=== PATIENT | male | born 1980 | race Caucasian/White ===

== ENCOUNTER 2016-08-25 10:18 | Emergency (ER) | payer SELFPAY ==
[2016-08-25] MEDS ORDERED: Tetracaine HCl/PF 0.5% 4 ML Bottle EYERT ONE (10:24)
[2016-08-25 10:40] VITALS: BP 143/80
--- NOTE | 2016-08-25 11:07 | EDM.PDOC ---
ED HPI GENERAL MEDICAL PROBLEM - General Chief Complaint: Eye Problems Stated Complaint: FOREIGN BODY IN OD, FELL OFF A LADDER Time Seen by Provider: 08/25/16 10:29 Source of Information: Reports: Patient History Limitations: Reports: No Limitations - History of Present Illness INITIAL COMMENTS - FREE TEXT/NARRATIVE: This patient was working on a ladder on a house when something flew out either a better bird and some debris flew up in his face. He fell off a ladder although he didn't hurt himself. He feels surgical foreign body in his right eye and it is underneath the upper eyelid the outer aspect. He denies any visual changes. This happened within the past 2 hours. - Related Data Allergies Allergy/AdvReac Type Severity Reaction Status Date / Time No Known Allergies Allergy Verified 04/14/13 06:13 Home Meds: Home Meds NK [No Known Home Meds] 03/10/13 [History] Past Medical History - Past Health History Medical/Surgical History: Denies Medical/Surgical History Social & Family History - Tobacco Use Years of Tobacco use: 5 Used Tobacco, but Quit: No Second Hand Smoke Exposure: Yes - Alcohol Use Days Per Week of Alcohol Use: 2 Number of Drinks Per Day: 10 Total Drinks Per Week: 20 - Recreational Drug Use Recreational Drug Use: No Drug Use in Last 12 Months: No Recreational Drug Type: Reports: Cocaine, Marijuana/Hashish Recreational Drug Use Frequency: Not Used In Over 1 Year ED ROS GENERAL - Review of Systems Review Of Systems: ROS reveals no pertinent complaints other than HPI. ED EXAM GENERAL W FULL EYE - Physical Exam Exam: See Below Exam Limited By: No Limitations General Appearance: Alert, WD/WN, Mild Distress Eye Exam: Right Eye: Conjunctival Injection, Foreign Body (There is a bright metallic foreign body at the lower margin of the cornea at the 6 o'clock position. It was visualized under the slit lamp and previously under a forcing staining. There were no other foreign body seen. The upper lid tarsal plate was everted and examined carefully there is no foreign body.), Bilateral Eye: EOMI Course - Vital Signs Last Recorded V/S: Last Vital Signs Temp 36.3 C 08/25/16 10:32 Pulse 67 08/25/16 10:32 Resp 16 08/25/16 10:32 BP 143/80 H 08/25/16 10:32 Pulse Ox 98 08/25/16 10:32 - Orders/Labs/Meds Meds: Medications Discontinued Medications Generic Name Dose Route Start Last Admin Trade Name Sarita PRN Reason Stop Dose Admin Tetracaine HCl 1 ml 08/25/16 10:24 Tetracaine 0.5% Steri-Unit Mora EYERT 08/25/16 10:25 ASDIRECTED ONE - Re-Assessments/Exams Free Text/Narrative Re-Assessment/Exam: 08/25/16 11:16 The eye was examined and the foreign body was seen however under slit-lamp its of bright metallic foreign body approximately 0.25 mm in diameter it looks like it may be embedded in the cornea. We don't have a magnet available. I spoke with Dr. Springer the painter drum at the [facility] and he can see him at 11 :30 this morning Departure - Departure Time of Disposition: 11:05 Disposition: Home, Self-Care 01 Condition: fair Clinical Impression: Corneal foreign body - Discharge Information Instructions: Eye Foreign Body, [id number] Referrals: Anthony Walker Sr, MD [Primary Care Provider] - Forms: ED Department Discharge Additional Instructions: See Dr Springer at the [facility] at 11:30. His cell phone is [phone] for any problems
== END 2016-08-25 11:19 | disposition home or self-care (01) ==
LOC: JP.ED 10:18
DX: T15.01XA Foreign body in cornea, right eye, initial encounter (principal); W11.XXXA Fall on and from ladder, initial encounter
CPT/HCPCS: 99283; A9270

== ENCOUNTER 2019-09-18 18:31 | Emergency (ER) | payer SELFPAY ==
[2019-09-18] MEDS ORDERED: Tetracaine HCl/PF 0.5% 4 ML Bottle EYELF ONE (18:34)
[2019-09-18 18:43] VITALS: BP 137/86; PULSE 72
--- NOTE | 2019-09-18 19:02 | EDM.PDOC ---
ED HPI GENERAL MEDICAL PROBLEM - General Chief Complaint: Eye Problems Stated Complaint: SPLINTER IN LEFT EYE Time Seen by Provider: 09/18/19 19:00 Source of Information: Reports: Patient History Limitations: Reports: No Limitations - History of Present Illness INITIAL COMMENTS - FREE TEXT/NARRATIVE: Pankaj is a 38 year old male, presents to the ED with left eye irritation and re dness after getting wood shaving in his eye this morning while using a chain saw. Patient was not using protective eye wear. DT up to date. Patient denies any visual changes or other complaints. HE has tried to wash out eye, light makes eye more sensitive. Nothing makes it better. Onset: Today Left Eye Pain Score (Numeric/FACES): 5 - Related Data Allergies Allergy/AdvReac Type Severity Reaction Status Date / Time No Known Allergies Allergy Verified 09/18/19 18:52 Home Meds: Home Meds NK [No Known Home Meds] 03/10/13 [History] Past Medical History - Past Health History Medical/Surgical History: Denies Medical/Surgical History Social & Family History - Tobacco Use Smoking Status *Q: Never Smoker - Caffeine Use Caffeine Use: Reports: Coffee, Energy Drinks - Recreational Drug Use Recreational Drug Use: No ED ROS GENERAL - Review of Systems Review Of Systems: Comprehensive ROS is negative, except as noted in HPI. ED EXAM GENERAL W FULL EYE - Physical Exam Exam: See Below Exam Limited By: No Limitations General Appearance: Alert, WD/WN, No Apparent Distress Eye Exam: Left Eye: Conjunctival Injection, Corneal Abrasion (1 o clock), Bilateral Eye: EOMI, PERRL Eyelids: Bilateral: Normal Appearance Conjunctiva & Sclera: Left: Injected, Scleral Icterus Extraocular Movements: Bilateral: Intact Pupils: Normal Accommodation Comments: eye irrigated with saline, ? FB left upper lid, in out canthus, irrigated with saline after eye anesthetized, no FB seen after this Nose: Normal Inspection Throat/Mouth: Normal Inspection Head: Atraumatic Neck: Normal Inspection Respiratory/Chest: No Respiratory Distress Cardiovascular: Regular Rate, Rhythm Back Exam: Normal Inspection Extremities: Normal Inspection Neurological: Alert, Oriented Psychiatric: Normal Affect, Normal Mood Lymphatic: No Adenopathy ED EYE w/ Add Procedure - Eye Procedure Alcaine Drops Administered: Yes Eye FB Removal: Other (Removed with NS) Progress: Fluorescein stain reveals 1 o clock corneal abrasion Course - Vital Signs Last Recorded V/S: Last Vital Signs Temp 36.4 C 09/18/19 18:51 Pulse 72 09/18/19 18:51 Resp 16 09/18/19 18:51 BP 137/86 09/18/19 18:51 Pulse Ox 98 09/18/19 18:51 Corneal abrasion left with removal of FB. DT up to date. Start antibiotic eye ointment as prescribed. Return with any worsening symptoms or new concerns. Ibuprofen/Tylenol as needed for pain per bottle instructions. Reasons to return discussed, patient agreeable and discharged in stable condition - Orders/Labs/Meds Meds: Medications Discontinued Medications Generic Name Dose Route Start Last Admin Trade Name Freq PRN Reason Stop Dose Admin Tetracaine HCl 1 ml 09/18/19 18:34 09/18/19 18:55 Tetracaine 0.5% Steri-Unit Mora EYELF 09/18/19 18:35 3 drop ASDIRECTED ONE Administration Departure - Departure Time of Disposition: 19:30 Disposition: Home, Self-Care 01 Condition: Good Clinical Impression: Corneal abrasion Qualifiers: Encounter type: initial encounter Laterality: left Qualified Code(s): S05.02XA - Injury of conjunctiva and corneal abrasion without foreign body, left eye, initial encounter - Discharge Information Instructions: Corneal Abrasion, [id number] Referrals: Anthony Walker Sr, MD [Primary Care Provider] - Forms: ED Department Discharge Additional Instructions: Ibuprofen for pain as needed per bottle instructions. Start antibiotic drops, use as directed. Return with any worsening symptoms. Sepsis Event Note (ED) - Evaluation Sepsis Screening Result: No Definite Risk - Focused Exam Vital Signs: Vital Signs Temp Pulse Resp BP Pulse Ox 09/18/19 18:51 36.4 C 72 16 137/86 98 09/18/19 18:42 36.4 C 72 16 137/86 98
== END 2019-09-18 19:36 | disposition home or self-care (01) ==
LOC: JP.ED 18:31
DX: T15.02XA Foreign body in cornea, left eye, initial encounter (principal)
CPT/HCPCS: 99283